=== PATIENT | female | born 1995 | race Hispanic/Latino ===

== ENCOUNTER 2016-10-28 13:00 | Outpatient (CLI) | payer OTHER, SELFPAY ==
[~2016-10-28] VITALS: Ht 167.6 cm; Wt 94.0 kg
[2016-10-28 13:11] VITALS: BP 115/63
== END 2016-10-28 14:14 | disposition home or self-care (01) ==
LOC: M LDO 13:00
PROVIDERS: ATTEND Advanced Practice Midwife
DX: O26.893 Other specified pregnancy related conditions, third trimester (principal); O99.343 Other mental disorders complicating pregnancy, third trimester; F33.9 Major depressive disorder, recurrent, unspecified; F41.9 Anxiety disorder, unspecified; O99.513 Diseases of the respiratory system complicating pregnancy, third trimester; J45.909 Unspecified asthma, uncomplicated; Z3A.37 37 weeks gestation of pregnancy; Z79.899 Other long term (current) drug therapy

== ENCOUNTER 2016-11-06 08:17 | Inpatient (IN) | payer OTHER ==
[2016-11-06] VITALS (31 sets, daily range): BP systolic 115–148; BP diastolic 55–91
[~2016-11-06] VITALS: Ht 166.4 cm; Wt 96.0 kg
[2016-11-06] MEDS ORDERED: PRENTAB9 PO (08:27)
[2016-11-06] MEDS ORDERED: ZOLO25TA PO (08:27)
[2016-11-06] MEDS ORDERED: ACET50TA PO (08:27)
[2016-11-06] MEDS ORDERED: ZANTTAB PO (08:27)
[2016-11-06] MEDS ORDERED: LACTATED RINGER'S 1000 ML IV ONE (08:45)
[2016-11-06 09:37] LABS: MEAN CORPUSCULAR HEMOGLOBIN 27.6 pg (27.0-33.0); MEAN CORPUSCULAR HGB CONC 33.6 g/dl (32.0-36.5); MEAN CORPUSCULAR VOLUME 82.2 fl (80.0-96.0); RED CELL DISTRIBUTION WIDTH 13.8 % (11.5-14.5)
[2016-11-06] MEDS ORDERED: FENTANYL 2MCG/ML ROPIVACAINE 0.2% NACL 250 ML CADD As Ordered ONE (09:59)
[2016-11-06] MEDS ORDERED: REFRIGERATOR IV KEYS XX PRN (11:45)
[2016-11-06] MEDS ORDERED: ePHEDrine SULFATE 25 MG/5 ML(5MG/ML) SYRINGE IV PRN (11:45)
[2016-11-06] MEDS ORDERED: FENTANYL/ROPIVACAINE/NACL CADD 250 ML EPIDURAL SCH (11:45)
[2016-11-06] MEDS ORDERED: EPIDURAL COMMENT XX SCH (11:45)
[2016-11-06] MEDS ORDERED: NALOXONE INJ 0.4 MG/1 ML VIAL (J2310) IV PRN (11:45)
[2016-11-06] MEDS ORDERED: diphenhydrAMINE INJ 50MG/ML VIAL (J1200) IV PRN (11:45)
[2016-11-06] MEDS ORDERED: EPIDURAL/PCA KEYS XX PRN (11:45)
[2016-11-06] MEDS ORDERED: LACTATED RINGER'S 1000 ML IV PRN (11:45)
[2016-11-06] MEDS ORDERED: ONDANSETRON 4MG/2ML VIAL (J2405) IV PRN (11:45)
[2016-11-06] MEDS ORDERED: OXYTOCIN 30 UNITS IN 0.9% NaCl 500ML IV BAG (J2590) As Ordered ONE (13:41)
[2016-11-06 15:57] LABS: CORD GAS ABE A -3.3; CORD GAS HCO3 A 23.8 MEQ/L; CORD GAS O2 SAT A 24.1 %; CORD GAS PCO2 A 50.8 mmHg; CORD GAS PH A 7.289 UNITS; CORD GAS PO2 A 14.4 mmHg; CORD GAS TCO2 A 25.4 MEQ/L
[2016-11-06 15:58] LABS: CORD GAS ABE V -2.5; CORD GAS O2 SAT V 57.9 %; CORD GAS PCO2 V 42.4 mmHg; CORD GAS PH V 7.352 UNITS; CORD GAS PO2 V 25.1 mmHg; CORD GAS SBC V 21.4 MEQ/L; CORD GAS TCO2 V 24.3 MEQ/L
[2016-11-06] MEDS ORDERED: MEASLES,MUMPS,RUBELLA VACCINE INJ (MMR-II) (90707) SC SCH (16:00)
[2016-11-06] MEDS ORDERED: DOCUSATE SODIUM 100 MG CAP PO PRN (16:00)
[2016-11-06] MEDS ORDERED: ACETAMINOPHEN 500 MG TAB PO PRN (16:00)
[2016-11-06] MEDS ORDERED: OXYTOCIN DRIP 30 UNITS in APPROPRIATE DILUENT 1 EA IV SCH (16:00)
[2016-11-06] MEDS ORDERED: DIBUCAINE 1% OINTMENT 30GM TOP PRN (16:00)
[2016-11-06] MEDS ORDERED: METHYLERGONOVINE MALEATE 0.2 MG TAB PO PRN (16:00)
[2016-11-06] MEDS ORDERED: RHOGAM 300 MCG (1500 IU) INJ (J2790) IM SCH (16:00)
[2016-11-06] MEDS ORDERED: ANUSOL HC CREAM 30GM TOP PRN (16:00)
[2016-11-06] MEDS ORDERED: MOM 30ML SUSPENSION UDC PO PRN (16:00)
--- NOTE | 2016-11-06 17:27 | HPE ---
DATE OF ADMISSION: 11/06/2016 A 20-year-old 2, para 1, last menstrual period (LMP) 02/04/2016, estimated date of confinement (EDC) 11/19/2016 at 38 and 1 weeks of gestation. Was seen in active labor, 100% effaced, occiput posterior (OP), 5 cm, bulging membranes. PAST HISTORY: In 2013 at 41 and 3, induction of labor, male, 8 pounds 13 ounces, vacuum with epidural. RISK FACTORS: She had anxiety, depression, asthma, a right questionable dermoid. an elevated 1-hour glucose tolerance test (GTT). LABORATORIES: A positive. Hepatitis negative, RPR negative, rubella immune, Varicella nonimmune. Pap normal. Urine negative. Gonorrhea and chlamydia negative. One-hour glucose 132, 3-hour glucose fasting 9-, 1-hour 176, 2-hour 155, and 3-hour 98. GBS was negative. Blood pressure today is 121/56, respirations are 18, pulse is 77, and temperature 98.4. Urine is 10/20, pH 7, negative, negative, +1 ketones. PHYSICAL EXAMINATION: Distressed female. Symphysis fundus height is 38, vertex, occiput posterior (OP), 5 cm, bulging membranes, -2 station. Moderate amount of mucus plug was noted. She is normocephalic, atraumatic. Neck: Full range of motion. Pupils equally reactive to light. Category 1 strip. Contractions are 3 minutes, spaced at 30-40 seconds, moderate intensity. Distal pulses are symmetric. No evidence of deep vein thrombosis (DVT), pulmonary embolism (PE), or superficial mellitus. Lungs are clear to bases bilaterally. No wheezes or rhonchi. Nontender uterus, appropriate fundus height. 4-quadrant bowel sounds are noted. She has no rashes, lesions, or pruritus. No arthralgia or myalgia. No complaints of cough, wheezes, shortness of breath, or dyspnea on exertion. No chest pain. She is not bleeding. Neurologic complete. No incontinence. No urgency, frequency. No nausea, vomiting, diarrhea, or constipation. Her 1-hour glucose was elevated; 3-hour was normal. No [employer] history. No past surgical history. FAMILY HISTORY: Noncontributory. She does not smoke, does not abuse drugs. She is . There is no domestic violence. In summary, we have a 38 and 1 week of gestation in active labor. Our plan is to admit her, hydrate her. The patient is requesting epidural at the appropriate interval. Our plans is for vaginal delivery. She is group B streptococcus (GBS) negative.
--- NOTE | 2016-11-06 17:57 | IPN ---
DATE: 11/06/2016 This patient and requested circumcision of their male . After discussing risks and benefits of circumcision, the medical and nonmedical indications, penile block, aftercare, both expressed understanding of the penile block and aftercare and signed a witnessed consent form. Await the clearance by the nuclear powerplant mechanic.
[2016-11-06] MEDS ORDERED: OXYTOCIN INJ 10 UNITS/ML VIAL (J2590) IV ONE (19:00)
[2016-11-07] MEDS: IBUPROFEN 800 MG TAB PO PRN ×2 (03:43→15:52)
[2016-11-07 05:28] VITALS: BP 110/53
[2016-11-07 07:20] LABS: MEAN CORPUSCULAR HEMOGLOBIN 27.9 pg (27.0-33.0); MEAN CORPUSCULAR HGB CONC 33.7 g/dl (32.0-36.5); MEAN CORPUSCULAR VOLUME 82.7 fl (80.0-96.0); RED CELL DISTRIBUTION WIDTH 13.7 % (11.5-14.5); WHITE BLOOD COUNT 12.3 K/mm3 (4.0-10.0)
--- NOTE | 2016-11-07 07:42 | DN ---
DATE: 11/06/2016 This lady, 1, para 1, was admitted in spontaneous labor. Epidural in place. Artificial rupture of membranes, particulate meconium was noted. We contacted neonatology and discussed the plan of suction to prevent aspiration. At full dilatation, the patient had a bit of augmentation with two milliunits of Pitocin. Had three pushes. Spontaneous vaginal delivery of a live male. in the occiput anterior (OA) position. Cord was around the foot times one. Weighing 7 pounds 6 ounces, 3256 grams. Apgars of 8 and 9 at one and five minutes respectively. Placenta delivered spontaneously after. Appeared to be green or cifuentes in nature with particulate meconium, indicating it was possibly old, although the baby itself was supposedly 38 weeks plus gestation. The placenta was sent to pathology under separate cover. The patient delivered the placenta spontaneously. Three-vessel cord, membranes and tissues intact. Examination of the vagina was intact. Cervix was intact. Perineum was intact. The sphincter was tight and closed. In summary, we have a spontaneous vaginal delivery of a live male infant, the patient and mother doing well.
[2016-11-07] MEDS: PRENATAL VITAMIN TAB PO SCH ×2 (08:53→08:54)
[2016-11-07] MEDS: SERTRALINE HCL 50 MG TAB PO SCH (09:00)
--- NOTE | 2016-11-07 09:57 | IPN ---
DATE OF SERVICE: 11/07/2016 A 21-year-old 2, now para 2, in spontaneous labor, delivered a live male infant, 7 pounds 6 ounces, 3256 grams. scores 8 and 9 at 1 and 5 minutes, respectively. Arterial pH was 7.28, base excess -3.3. Venous pH 7.35, base excess -2.5. Admitting hemoglobin was 11.8, hematocrit 35.2, platelets are 273. day #1 hemoglobin is pending. This morning, she is doing well. No evidence of abnormalities. Voiding. Passing gas. She is up breast-feeding. Planning on family planning. Her issues are. she had anxiety and depression. She has asthma, although she is not taking the medication right now. Questionable right dermoid, which will be resolved after a 6-week checkup with a repeat ultrasound. Blood pressure this morning is 110/53, respirations are 18, pulse is 69, and temperature is 98.2. The rest of the examination is unremarkable. She is normocephalic, atraumatic. Neck: Full range of motion. Pupils equal and reactive to light. Distal pulses symmetric. No evidence of deep venous thrombosis (DVT), pulmonary embolism (PE), or superficial phlebitis. Chest is clear bilaterally to the bases. No wheezes or rhonchi. Uterus 2 below. Lochia is moderate. Perineum is intact. Bowel sounds are present all four quadrants. She has no rashes, lesions, or pruritus. No cough, wheeze, shortness of breath, or dyspnea on exertion. No bleeding. Neuro complete. No urgency, frequency, or incontinence. No nausea, vomiting, diarrhea, or constipation. She is planning on discharge for tomorrow. We are planning on circumcision of male after clearance by the slab grinder. In summary, we have a term gestation, delivered a live male infant, uneventful.
[2016-11-07 18:07] VITALS: BP 109/59
[2016-11-08 05:59] VITALS: BP 123/62
[2016-11-08] MEDS: PRENATAL VITAMIN TAB PO SCH (08:13)
[2016-11-08] MEDS: IBUPROFEN 800 MG TAB PO PRN (08:14)
[2016-11-08] MEDS: SERTRALINE HCL 50 MG TAB PO SCH (09:12)
[2016-11-08] MEDS ORDERED: IBUP-1114 PO (09:43)
== END 2016-11-08 11:15 | disposition home or self-care (01) | DRG 775 ==
LOC: M LDO 08:17 → M LDI 08:39 → M OBS 18:41
PROVIDERS: ADMIT Obstetrics & Gynecology; ATTEND Obstetrics & Gynecology
PROC: 10E0XZZ Delivery of Products of Conception, External Approach (ICD-10-PCS; principal; 2016-11-06)
PROC: 10907ZC Drainage of Amniotic Fluid, Therapeutic from Products of Conception, Via Natural or Artificial Opening (ICD-10-PCS; 2016-11-06)
DX: O77.0 Labor and delivery complicated by meconium in amniotic fluid (principal); Z37.0 Single live birth; Z3A.38 38 weeks gestation of pregnancy; O99.344 Other mental disorders complicating childbirth; F41.8 Other specified anxiety disorders; O99.52 Diseases of the respiratory system complicating childbirth; J45.909 Unspecified asthma, uncomplicated; O69.82X0 Labor and delivery complicated by other cord entanglement, without compression, not applicable or unspecified; Z79.899 Other long term (current) drug therapy

== ENCOUNTER → 2017-05-12 | Outpatient (REF) | payer OTHER ==
[~2017-05-12] MED LIST: ACET50TA PO; IBUP-1114 PO; PRENTAB9 PO; ZANTTAB PO; ZOLO25TA PO
== END ==
LOC: M SFHCLERA 10:33
PROVIDERS: ATTEND Physician Assistant
DX: J02.9 Acute pharyngitis, unspecified (principal)
CPT/HCPCS: 87070; G0463

== ENCOUNTER 2018-01-19 22:17 | Outpatient (CLI) | payer OTHER | END 2018-01-20 01:10 | disposition home or self-care (01) | LOC: M LDO 22:17 | DX: O62.2 Other uterine inertia (principal); O47.1 False labor at or after 37 completed weeks of gestation; Z3A.40 40 weeks gestation of pregnancy | CPT/HCPCS: 59025 ==

== ENCOUNTER 2018-01-20 09:07 | Inpatient (IN) | payer OTHER ==
[2018-01-20] MEDS: OXYTOCIN INJ 10 UNITS/ML VIAL (J2590) IV (09:44)
[2018-01-20 10:18] LABS: HEMATOCRIT 37.4 % (36.0-47.0); HEMOGLOBIN 12.5 g/dl (12.0-15.5); MEAN CORPUSCULAR HGB CONC 33.4 g/dl (32.0-36.5); MEAN CORPUSCULAR VOLUME 83.7 fl (80.0-96.0); PLATELET COUNT, AUTOMATED 236 10^3/uL (150-450); RED BLOOD COUNT 4.47 10^6/uL (4.00-5.40); RED CELL DISTRIBUTION WIDTH 14.2 % (11.5-14.5); WHITE BLOOD COUNT 11.1 10^3/uL (4.0-10.0)
[2018-01-20] MEDS: LR 1,000 ML IV ×5 (10:22→14:22)
[2018-01-20] MEDS ORDERED: DIBUCAINE 1% OINTMENT 30GM TOP (10:30)
[2018-01-20] MEDS ORDERED: ACETAMINOPHEN TAB 650MG DOSE (2X325MG) PO (10:30)
[2018-01-20] MEDS ORDERED: METOCLOPRAMIDE INJ 10MG/2ML VIAL (J2765) IV (10:30)
[2018-01-20] MEDS ORDERED: MEASLES,MUMPS,RUBELLA VACCINE INJ (MMR-II) (90707) SC (10:30)
[2018-01-20] MEDS ORDERED: RHOGAM 300 MCG (1500 IU) INJ (J2790) IM (10:30)
[2018-01-20] MEDS: IBUPROFEN 800 MG TAB PO ×2 (10:42→17:54)
[2018-01-20] MEDS: DOCUSATE SODIUM 100 MG CAP PO (20:53)
[2018-01-21] MEDS: IBUPROFEN 800 MG TAB PO ×2 (04:52→13:09)
[2018-01-21] MEDS: PRENATAL VITAMINS CHEWABLE TABLET PO (08:54)
[2018-01-21] MEDS: DOCUSATE SODIUM 100 MG CAP PO (08:54)
== END 2018-01-21 13:40 | disposition home or self-care (01) | DRG 775 ==
LOC: M LDO 09:07 → M LDI 09:30 → M OBS 13:36
PROVIDERS: Obstetrics & Gynecology
PROC: 10E0XZZ Delivery of Products of Conception, External Approach (ICD-10-PCS; principal; 2018-01-20)
DX: O48.0 Post-term pregnancy (principal); Z37.0 Single live birth; Z3A.40 40 weeks gestation of pregnancy; O24.429 Gestational diabetes mellitus in childbirth, unspecified control; Z91.018 Allergy to other foods; Z79.899 Other long term (current) drug therapy; F32.9 Major depressive disorder, single episode, unspecified; O69.81X0 Labor and delivery complicated by cord around neck, without compression, not applicable or unspecified; O77.0 Labor and delivery complicated by meconium in amniotic fluid; O62.3 Precipitate labor; O99.344 Other mental disorders complicating childbirth